=== PATIENT | female | born 1985 | race Caucasian/White ===

== ENCOUNTER 2016-08-15 10:35 | Emergency (ER) | payer OTHER ==
[2016-08-15] MEDS ORDERED: Famotidine IV* 10 MG/ML 2 ML (20 mg) IV ONE (12:21)
[2016-08-15] MEDS ORDERED: NS 0.9% 1000 ML* 2,000 ML IV ONE (12:21)
[2016-08-15] MEDS ORDERED: Ondansetron INJ* 2 MG/ML VIAL IV ONE ×2 (12:21→13:09)
[2016-08-15 12:41] LABS: Hematocrit 41 % (35-47); Hemoglobin 13.7 g/dl (12.0-16.0); Mean Corpuscular HGB Conc 34 g/dl (31-36); Mean Corpuscular Hemoglobin 30 pg (27-31); Mean Corpuscular Volume 90 fL (80-97); Mean Platelet Volume 7 um3 (7.4-10.4); Red Blood Count 4.53 10^6/ul (4.0-5.4); Red Cell Distribution Width 13 % (10.5-15); White Blood Count 7.4 10^3/ul (3.5-10.8)
[2016-08-15 12:53] LABS: ALT 12 U/L (7-52); AST 14 U/L (13-39); Albumin 4.3 g/dL (3.2-5.2); Alkaline Phosphatase 47 U/L (34-104); Amylase 29 U/L (29-103); Anion Gap 8 mmol/L (2-11); BUN/Creatinine Ratio 20.3 (8-20); Blood Urea Nitrogen 14 mg/dL (6-24); CO2 Carbon Dioxide 22 mmol/L (22-32); Chloride 105 mmol/L (101-111); EGFR African American 128.5 (>60); EGFR Non-African American 99.9 (>60); Globulin 2.8 g/dL (2-4); Glucose 115 mg/dL (70-100); Lipase 16 U/L (11.0-82.0); Potassium 3.8 mmol/L (3.5-5.0); Sodium 135 mmol/L (133-145); Total Protein 7.1 g/dL (6.4-8.9)
[2016-08-15] MEDS ORDERED: Ketorolac INJ* 30 MG/ML 1 ML VIAL IV PUSH ONE (13:09)
--- NOTE | 2016-08-15 13:49 | RAD ---
HISTORY: Abdominal pain COMPARISONS: CT dated June 19, 2016 VIEWS: Frontal views of the abdomen. FINDINGS: BOWEL: There is a nonspecific bowel gas pattern, with nondilated small bowel gas noted. CALCULI: There are no abnormal calculi. BONES AND SOFT TISSUES: There is mild scoliotic curvature of the spine OTHER FINDINGS: The lung bases are clear. There is no subphrenic gas. IMPRESSION: NONSPECIFIC BOWEL GAS PATTERN. NO SUBPHRENIC GAS.
--- NOTE | 2016-08-15 13:52 | ED ---
Jose Luis Covarrubias Adam, scribed for Aman Chavez MD on 08/15/16 at 1216 . GI/ HPI - HPI Summary HPI Summary: Pt is a 31 year old female presenting with nausea and vomiting since 01:30 this morning. 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 Pt states that she went to sleep with abdominal pain last night and she had bloody diarrhea 2 days ago. She states that there is a possibility that she is . She reports being diagnosed with Crohn's disease but she denies ever having a colonoscopy. She is not on any medication for Crohn's; she states that she has an appt with a new doctor soon. PMHx of COPD. - History of Current Complaint Chief Complaint: EDAbdPain Time Seen by Provider: 08/15/16 12:10 Stated Complaint: VOMITING Hx Obtained From: Patient Onset/Duration: Started Hours Ago, Atraumatic, Still Present Timing: Constant Severity: Moderate Current Severity: Moderate Pain Intensity: 8 Location of Pain: Diffuse Pain Characteristics: Aching Associated Signs and Symptoms: Positive: Nausea, Vomiting Aggravating Factor(s): Nothing Alleviating Factor(s): Nothing - Allergy/Home Medications Allergies/Adverse Reactions: Allergies Allergy/AdvReac Type Severity Reaction Status Date / Time Penicillins [PCN] Allergy Severe Hives/Diff. Verified 08/15/16 10:54 Breathing/I tching Fluconazole [From Diflucan] Allergy Intermediate Hives Verified 08/15/16 10:54 Latex Allergy Intermediate Swelling Verified 08/15/16 10:54 Terbutaline Allergy Intermediate Hives Verified 08/15/16 10:54 Hydrocodone [From Vicodin] Allergy Unknown Verified 08/15/16 10:54 Reaction Details PMH/Surg Hx/FS Hx/Imm Hx Endocrine/Hematology History: Denies: Hx Anticoagulant Therapy, Hx Diabetes, Hx Systemic Lupus Erythematosus, Hx Thyroid Disease Cardiovascular History: Denies: Hx Congestive Heart Failure, Hx Hypertension, Hx Pacemaker/ICD Respiratory History: Reports: Hx Asthma, Hx Chronic Obstructive Pulmonary Disease (COPD), Other Respiratory Problems/Disorders - COPD Denies: Hx Lung Cancer GI History: Reports: Other GI Disorders - crohns Denies: Hx Gall Bladder Disease, Hx Gastrointestinal Bleed, Hx Ulcer, Hx Urosepsis History: Reports: Hx Kidney Infection, Other Problems/Disorders - hx kidney stones Denies: Hx Dialysis, Hx Kidney Stones, Hx Renal Disease Musculoskeletal History: Denies: Hx Rheumatoid Arthritis Psychiatric History: Reports: Hx Anxiety - She is not on medications for these three psychiatric conditions., Hx Depression, Hx Community Mental Health Tx, Hx Bipolar Disorder, Hx Substance Abuse Denies: Hx Panic Disorder - Cancer History Hx Chemotherapy: No - Surgical History Surgery Procedure, Year, and Place: 3 C-sections;. L knee surgery; Infectious Disease History: No Infectious Disease History: Denies: Hx Clostridium Difficile, Hx Hepatitis, Hx Human Immunodeficiency Virus (HIV), Hx of Known/Suspected MRSA, Hx Shingles, Hx Tuberculosis, Hx Known/ Suspected VRE, Hx Known/Suspected VRSA, History Other Infectious Disease, Traveled Outside the [place] in Last 30 Days - Family History Known Family History: Positive: Respiratory Disease - asthma, COPD, Other - Prostate cancer in father. - Social History Occupation: Unemployed Lives: With Family - Mother Alcohol Use: None Hx Substance Use: Yes Substance Use Type: Reports: Prescribed, Other Substance Use Comment - Amount & Last Used: FORMER USE OF COCAINE IN HER 20'S Hx Tobacco Use: Yes Smoking Status (MU): Former Smoker Type: Cigarettes Review of Systems Constitutional: Negative Negative: Fever Positive: Abdominal Pain, Vomiting, Diarrhea, Other - Blood in stool All Other Systems Reviewed And Are Negative: Yes Physical Exam - Summary Physical Exam Summary: VITAL SIGNS: Reviewed. GENERAL: Patient is an obese female who is lying comfortable in the stretcher. Patient is not in any acute respiratory distress. HEAD AND FACE: Normocephalic and atraumatic. EYES: PERRLA, EOMI x 2, No injected conjunctiva. EARS: Hearing grossly intact. Ear canals and tympanic membranes are WNL. MOUTH: Oropharynx within normal limits. NECK: Supple, trachea is midline, no adenopathy, no JVD. CHEST: Symmetric, no tenderness at palpation LUNGS: Clear to auscultation bilaterally. No wheezing or crackles. CVS: RRR,, S1 and S2 present, no murmurs or gallops appreciated. ABDOMEN: Soft, positive abdominal pain. No signs of distention. Positive bowel sounds. No rebound no guarding, and no masses palpated. No abdominal bruit or pulsations. EXTREMITIES: FROM in all major joints, no edema, no cyanosis or clubbing. NEURO: Alert and oriented x 3. No acute neurological deficits. Speech is normal. SKIN: Dry and warm Triage Information Reviewed: Yes Vital Signs On Initial Exam: Initial Vitals Temp Pulse Resp BP Pulse Ox 97.9 F 92 17 113/75 99 08/15/16 10:40 08/15/16 10:40 08/15/16 10:40 08/15/16 10:40 08/15/16 10:40 Vital Signs Reviewed: Yes Diagnostics - Vital Signs Vital Signs Temp Pulse Resp BP Pulse Ox 08/15/16 11:34 82 15 96 08/15/16 11:33 116/63 08/15/16 10:40 97.9 F 92 17 113/75 99 - Laboratory Lab Results: Lab Results 08/15/16 08/15/16 08/15/16 Range/Units 11:54 11:54 11:54 WBC 7.4 (3.5-10.8) 10^3/ul RBC 4.53 (4.0-5.4) 10^6/ul Hgb 13.7 (12.0-16.0) g/dl Hct 41 (35-47) % MCV 90 (80-97) fL MCH 30 (27-31) pg MCHC 34 (31-36) g/dl RDW 13 (10.5-15) % Plt Count 206 (150-450) 10^3/ul MPV 7 L (7.4-10.4) um3 Neut % (Auto) 83.4 H (38-83) % Lymph % (Auto) 10.2 L (25-47) % Dodge % (Auto) 5.3 (1-9) % Eos % (Auto) 0.8 (0-6) % Baso % (Auto) 0.3 (0-2) % Absolute Neuts (auto) 6.2 (1.5-7.7) 10^3/ul Absolute Lymphs (auto) 0.8 L (1.0-4.8) 10^3/ul Absolute Monos (auto) 0.4 (0-0.8) 10^3/ul Absolute Eos (auto) 0.1 (0-0.6) 10^3/ul Absolute Basos (auto) 0 (0-0.2) 10^3/ul Absolute Nucleated RBC 0.01 10^3/ul Nucleated RBC % 0.1 Sodium 135 (133-145) mmol/L Potassium 3.8 (3.5-5.0) mmol/L Chloride 105 (101-111) mmol/L Carbon Dioxide 22 (22-32) mmol/L Anion Gap 8 (2-11) mmol/L BUN 14 (6-24) mg/dL Creatinine 0.69 (0.51-0.95) mg/dL Est GFR ( Amer) 128.5 (>60) Est GFR (Non-Af Amer) 99.9 (>60) BUN/Creatinine Ratio 20.3 H (8-20) Glucose 115 H (70-100) mg/dL Lactic Acid 1.7 (0.5-2.0) mmol/L Calcium 9.0 (8.6-10.3) mg/dL Total Bilirubin 0.70 (0.2-1.0) mg/dL AST 14 (13-39) U/L ALT 12 (7-52) U/L Alkaline Phosphatase 47 (34-104) U/L C-Reactive Protein 13.60 H (< 5.00) mg/L Total Protein 7.1 (6.4-8.9) g/dL Albumin 4.3 (3.2-5.2) g/dL Globulin 2.8 (2-4) g/dL Albumin/Globulin Ratio 1.5 (1-3) Amylase 29 (29-103) U/L Lipase 16 (11.0-82.0) U/L Beta HCG, Quant < 0.60 mIU/mL Result Diagrams: 08/15/16 11:54 08/15/16 11:54 Lab Statement: Any lab studies that have been ordered have been reviewed, and results considered in the medical decision making process. - Radiology Abdomen X-Ray Radiology Interpretation Completed By: ED Physician - No acute pathology GIGU Course/Dx - Course Assessment/Plan: Pt is a 31 year old female presenting with nausea and vomiting since 01:30 this morning. 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 Pt states that she went to sleep with abdominal pain last night and she had bloody diarrhea 2 days ago. She states that there is a possibility that she is . She reports being diagnosed with Crohn's disease but she denies ever having a colonoscopy. She is not on any medication for Crohn's. ED course she was hydrated with IV fluids. Patient was given Zofran for nausea and vomiting and Pepcid. Blood work is found to be wnl. Last CT abdomen and pelvis done on 06/19/16 show no acute intra abdominal abnormality. She was given Toradol for pain. After medication she is feeling better . I discussed all the findings and test results with the patient and patient. Patient was instructed to return to the emergency room immediately if any of the symptoms return or worsens. They understand and agree. They were explained the possibility of an early abdominal pathology which was not detected at this time despite the physical exam and testing. They understand and agree. Abdominal exam before discharge: Soft,NT. No signs of distention. BS present. No rebound no guarding, and no masses palpated. Patient is alert and oriented. Patient is hemodynamically stable. Patient is to follow up with primary care physician in the next 24 hours. Patient and patients parents agree and understands. - Diagnoses Differential Diagnoses - Female: Bowel Obstruction, Constipation, Colitis, Diverticulitis, Gastroenteritis (Viral), Gastroenteritis (Bacterial) Provider Diagnoses: Abdominal pain, Nausea and vomiting Discharge - Discharge Plan Condition: Stable Disposition: HOME Prescriptions: Ondansetron ODT TAB* [Zofran Odt TAB*] 4 mg PO Q6H PRN #10 tab.odt PRN Reason: Vomiting Patient Education Materials: Acute Nausea and Vomiting (ED), Abdominal Pain (ED ) Referrals: Sita León MD [Medical Doctor] - No Primary Care Phys,NOPCP [Primary Care Provider] - Additional Instructions: Follow up with Dr. León. The documentation as recorded by the Jose Luis byers Adam accurately reflects the service I personally performed and the decisions made by me, Aman Chavez MD.
[2016-08-15 14:32] LABS: Urine Bilirubin Negative (Negative); Urine Glucose Negative (Negative); Urine Nitrite Negative (Negative)
[2016-08-15 14:59] VITALS: BP 122/76
== END 2016-08-15 14:57 | disposition home or self-care (01) ==
LOC: ED 10:35
DX: R11.2 Nausea with vomiting, unspecified (principal); Z87.891 Personal history of nicotine dependence; R19.7 Diarrhea, unspecified
CPT/HCPCS: 36415; 74020; 80053; 81003; 82150; 83605; 83690; 84702; 85025; 86140; 99284; J1885; J2405

== ENCOUNTER 2017-01-12 07:12 | Emergency (ER) | payer OTHER ==
[2017-01-12 07:31] VITALS: BP 116/81
== END 2017-01-12 08:11 | disposition left against medical advice (07) ==
LOC: UCEAST 07:12
DX: R11.10 Vomiting, unspecified (principal); R19.7 Diarrhea, unspecified; Z32.02 Encounter for pregnancy test, result negative; Z53.21 Procedure and treatment not carried out due to patient leaving prior to being seen by health care provider
CPT/HCPCS: 81003; 84702

== ENCOUNTER 2017-01-12 18:05 | Emergency (ER) | payer OTHER ==
[2017-01-12] MEDS ORDERED: Ondansetron INJ* 2 MG/ML VIAL IV ONE (18:27)
[2017-01-12] MEDS ORDERED: Ketorolac INJ* 30 MG/ML 1 ML VIAL IV PUSH ONE (18:27)
[2017-01-12] MEDS ORDERED: NS 0.9% 1000 ML* 1,000 ML BOLUS ONE (18:27)
--- NOTE | 2017-01-12 18:35 | UC ---
Back Pain HPI - HPI Summary HPI Summary: R flank pain with vomiting starting 1-2 days ago. needs note for work. Checked in here this morning and also went to the ED, [facility] both places because she wanted to be seen quicker. Reports hx of "lots of kidney problems" and says she was hospitalized for 5 days when her kidneys shut down years ago. - History of Current Complaint Chief Complaint: UCBackPain Stated Complaint: BACK PAIN Time Seen by Provider: 01/12/17 18:17 Hx Obtained From: Patient Hx Last Menstrual Period: 12/23/16 ?: No Onset/Duration: Gradual Onset, Lasting Days Timing: Intermittent - 10-15 minutes of stabbing pain followed by dull ache. Back Pain: Is Discrete @ - R flank, Radiates To - R abdomen Character: Sharp, Dull Aggravating: Nothing Alleviating: Nothing Associated Signs And Symptoms: Positive: Flank Pain Related History: Similar Episode Dx As - kidney infections - Allergies/Home Medications Allergies/Adverse Reactions: Allergies Allergy/AdvReac Type Severity Reaction Status Date / Time Penicillins [PCN] Allergy Severe Hives/Diff. Verified 01/12/17 18:11 Breathing/I tching Fluconazole [From Diflucan] Allergy Intermediate Hives Verified 01/12/17 18:11 Latex Allergy Intermediate Swelling Verified 01/12/17 18:11 Hydrocodone [From Vicodin] Allergy Unknown Verified 01/12/17 18:11 Reaction Details Home Medications: Home Medications [id number] [Excedrin Extra Strength 250-250-65 mg] 2 tab PO 01/12/17 [History] PMH/Surg Hx/FS Hx/Imm Hx Respiratory History: Asthma Other GI/ History: crohn's dz Other History Of: Negative For: HIV, Hepatitis B, Hepatitis C, Anticoagulant Therapy - Surgical History Surgical History: Yes Surgery Procedure, Year, and Place: 3 C-sections;. L knee surgery; - Family History Known Family History: Positive: Respiratory Disease - asthma, COPD, Other - Prostate cancer in father. - Social History Alcohol Use: None Substance Use Type: None Substance Use Comment - Amount & Last Used: HX MARIJUANA USE; STATES CLEAN X30 DAYS Smoking Status (MU): Current Every Day Smoker Type: Cigarettes Amount Used/How Often: 1/2 PPD Length of Time of Smoking/Using Tobacco: 15 YRS When Did the Patient Quit Smoking/Using Tobacco: 3 years ago Household Exposure Type: Cigarettes - Immunization History Most Recent Influenza Vaccination: fall 2011 Most Recent Tetanus Shot: unknown Review of Systems Constitutional: Negative Skin: Negative Eyes: Negative ENT: Negative Respiratory: Negative Cardiovascular: Negative Gastrointestinal: Vomiting Genitourinary: Other - urinary odor Motor: Negative Neurovascular: Negative Musculoskeletal: Other: - R flank pain Neurological: Negative Psychological: Negative All Other Systems Reviewed And Are Negative: Yes Physical Exam Triage Information Reviewed: Yes Appearance: Well-Appearing, No Pain Distress, Obese Vital Signs: Initial Vital Signs Temp 98.5 F 01/12/17 18:07 Pulse 83 01/12/17 18:07 Resp 16 01/12/17 18:07 BP 104/69 01/12/17 18:07 Pulse Ox 99 01/12/17 18:07 Vital Signs Reviewed: Yes Eye Exam: Normal Eyes: Positive: Conjunctiva Clear ENT Exam: Normal ENT: Positive: Normal ENT inspection, Hearing grossly normal, Pharynx normal, TMs normal Dental Exam: Normal Neck exam: Normal Neck: Positive: Supple, Nontender, No Lymphadenopathy Respiratory Exam: Normal Respiratory: Positive: Chest non-tender, Lungs clear, Normal breath sounds, No respiratory distress Cardiovascular Exam: Normal Cardiovascular: Positive: RRR, No Murmur Abdomen Description: Positive: Soft, CVA Tenderness (R). Negative: No Organomegaly, CVA Tenderness (L), Distended, Guarding Musculoskeletal Exam: Normal Neurological Exam: Normal Neurological: Positive: Alert Psychological Exam: Normal Skin Exam: Normal Back Pain Course/Dx - Differential Dx/Diagnosis Provider Diagnoses: R flank pain Discharge - Discharge Plan Condition: Stable Disposition: HOME
[2017-01-12] MEDS ORDERED: Ondansetron ODT TAB* 4 MG PO ONE (18:49)
[2017-01-12] MEDS ORDERED: Naproxen TAB* 250 MG PO ONE (18:49)
[2017-01-12 19:12] VITALS: BP 104/69
== END 2017-01-12 19:27 | disposition home or self-care (01) ==
LOC: UCEAST 18:05
DX: R10.31 Right lower quadrant pain (principal); J45.909 Unspecified asthma, uncomplicated; K50.90 Crohn's disease, unspecified, without complications; F12.90 Cannabis use, unspecified, uncomplicated; F17.210 Nicotine dependence, cigarettes, uncomplicated; E66.9 Obesity, unspecified; Z88.3 Allergy status to other anti-infective agents; Z88.0 Allergy status to penicillin; Z88.5 Allergy status to narcotic agent; Z91.040 Latex allergy status; Z79.82 Long term (current) use of aspirin
CPT/HCPCS: 81003; 84702; 99212; A9270-GY; G0463

== ENCOUNTER 2017-02-17 07:36 | Emergency (ER) | payer OTHER ==
[2017-02-17] MEDS ORDERED: NS 0.9% 1000 ML* 1,000 ML IV ONE (08:09)
[2017-02-17] MEDS ORDERED: methylPREDNISolone 125 MG* 2 ML VIAL IV ONE (08:09)
[2017-02-17] MEDS ORDERED: Albuterol/Ipratropium NEB.SOL* Albuterol 2.5 MG/Ipratropium 0.5 MG 3 ML INH ONE (08:09)
[2017-02-17 09:24] LABS: Hematocrit 42 % (35-47); Hemoglobin 13.8 g/dl (12.0-16.0); Mean Corpuscular HGB Conc 33 g/dl (31-36); Mean Corpuscular Hemoglobin 32 pg (27-31); Mean Corpuscular Volume 95 fL (80-97); Mean Platelet Volume 8 um3 (7.4-10.4); Red Blood Count 4.38 10^6/ul (4.0-5.4); Red Cell Distribution Width 13 % (10.5-15); White Blood Count 6.8 10^3/ul (3.5-10.8)
[2017-02-17 09:39] LABS: ALT 8 U/L (7-52); AST 11 U/L (13-39); Albumin 4.7 g/dL (3.2-5.2); Alkaline Phosphatase 48 U/L (34-104); Anion Gap 6 mmol/L (2-11); BUN/Creatinine Ratio 10.6 (8-20); Blood Urea Nitrogen 9 mg/dL (6-24); C Reactive Protein 3.89 mg/L (< 5.00); CO2 Carbon Dioxide 25 mmol/L (22-32); Calcium 9.5 mg/dL (8.6-10.3); Chloride 106 mmol/L (101-111); EGFR Non-African American 78.5 (>60); Globulin 2.6 g/dL (2-4); Glucose 102 mg/dL (70-100); Potassium 4.1 mmol/L (3.5-5.0); Sodium 137 mmol/L (133-145); Total Protein 7.3 g/dL (6.4-8.9)
[2017-02-17 10:46] LABS: Urine Bilirubin Negative (Negative); Urine Glucose Negative (Negative); Urine Nitrite Negative (Negative)
--- NOTE | 2017-02-17 11:54 | RAD ---
Indication: Shortness of breath. 2 views of the chest are reviewed and compared to previous exam dated October 01, 2015. No mediastinal shift is noted. Heart is of normal size and configuration. Lung burgess demonstrate no pleural fluid, pneumonia or pneumothorax. Overall no significant change is noted since October 01, 2015. IMPRESSION: No active cardiopulmonary disease is noted.
[2017-02-17 12:29] VITALS: BP 99/62
--- NOTE | 2017-02-17 13:41 | ED ---
Criselda Covarrubias Thomas, scribed for Aman Chavez MD on 02/17/17 at 0804 . HPI Chest Pain - HPI Summary HPI Summary: The pt is a 31 y/o F presenting to the ED c/o CP that began at 06:00 this AM. She describes that her pain as a tightness and rates her pain 8/10. The pain is worsened with deep breaths. The pt says that it feels like her lungs are filling with fluid when she breathes. Pt additionally c/o SOB, and cough ( onset 3 or 4 weeks ago with green production). Pt denies fever and chills. She takes albuterol QID, and a BID COPD medication. PMHx: COPD and asthma. LNMP last month. - History of Current Complaint Chief Complaint: EDShortnessOfBreath Time Seen by Provider: 02/17/17 07:54 Hx Obtained From: Patient Onset/Duration: Started Days Ago - this AM at 06:00, Still Present Timing: Constant Current Severity: Severe Pain Intensity: 8 Pain Scale Used: 0-10 Numeric Character: Tightness Aggravating Factor(s): Deep Breaths Associated Signs and Symptoms: Positive: Chest Pain, Shortness of Breath, Productive Cough - with green production. Negative: Fever, Chills - Allergy/Home Medications Allergies/Adverse Reactions: Allergies Allergy/AdvReac Type Severity Reaction Status Date / Time Penicillins [PCN] Allergy Severe Hives/Diff. Verified 01/12/17 18:11 Breathing/I tching Fluconazole [From Diflucan] Allergy Intermediate Hives Verified 01/12/17 18:11 Latex Allergy Intermediate Swelling Verified 01/12/17 18:11 Hydrocodone [From Vicodin] Allergy Unknown Verified 01/12/17 18:11 Reaction Details PMH/Surg Hx/FS Hx/Imm Hx Previously Healthy: No Endocrine/Hematology History: Denies: Hx Anticoagulant Therapy, Hx Diabetes, Hx Systemic Lupus Erythematosus, Hx Thyroid Disease Cardiovascular History: Denies: Hx Congestive Heart Failure, Hx Hypertension, Hx Pacemaker/ICD Respiratory History: Reports: Hx Asthma, Hx Chronic Obstructive Pulmonary Disease (COPD) Denies: Hx Lung Cancer GI History: Reports: Other GI Disorders - crohns Denies: Hx Gall Bladder Disease, Hx Gastrointestinal Bleed, Hx Ulcer, Hx Urosepsis History: Reports: Hx Kidney Infection, Other Problems/Disorders - hx kidney stones Denies: Hx Dialysis, Hx Kidney Stones, Hx Renal Disease Musculoskeletal History: Denies: Hx Rheumatoid Arthritis Psychiatric History: Reports: Hx Anxiety - She is not on medications for these three psychiatric conditions., Hx Depression, Hx Community Mental Health Tx, Hx Bipolar Disorder, Hx Substance Abuse Denies: Hx Panic Disorder - Cancer History Hx Chemotherapy: No - Surgical History Surgery Procedure, Year, and Place: 3 C-sections;. L knee surgery; Infectious Disease History: No Infectious Disease History: Denies: Hx Clostridium Difficile, Hx Hepatitis, Hx Human Immunodeficiency Virus (HIV), Hx of Known/Suspected MRSA, Hx Shingles, Hx Tuberculosis, Hx Known/ Suspected VRE, Hx Known/Suspected VRSA, History Other Infectious Disease, Traveled Outside the [place] in Last 30 Days - Family History Known Family History: Positive: Respiratory Disease - asthma, COPD, Other - Prostate cancer in father. - Social History Alcohol Use: None Hx Substance Use: Yes Substance Use Type: Reports: Marijuana Substance Use Comment - Amount & Last Used: daily Hx Tobacco Use: Yes Smoking Status (MU): Heavy Every Day Tobacco Smoker Type: Cigarettes Amount Used/How Often: 1/2 PPD Length of Time of Smoking/Using Tobacco: 15 YRS Review of Systems Constitutional: Negative Negative: Fever, Chills Eyes: Negative ENT: Negative Cardiovascular: Negative Positive: Chest Pain - tighness, worsened with deep breaths, 8/10, onset this AM at 06:00 Positive: Shortness Of Breath, Cough - with green production, Other - POS: "it feels like my lungs are filling with fluid when I breathe" Gastrointestinal: Negative Genitourinary: Negative Musculoskeletal: Negative Skin: Negative Neurological: Negative Psychological: Normal All Other Systems Reviewed And Are Negative: Yes Physical Exam - Summary Physical Exam Summary: VITAL SIGNS: Reviewed. GENERAL: ~Patient is a well-developed and nourished female who is lying comfortable in the stretcher. ~Patient is not in any acute respiratory distress. HEAD AND FACE: No signs of trauma. ~No ecchymosis, hematomas or skull depressions. No sinus tenderness. EYES: PERRLA, EOMI x 2, No injected conjunctiva, no nystagmus. EARS: Hearing grossly intact. Ear canals and tympanic membranes are within normal limits. MOUTH: Oropharynx within normal limits. NECK: Supple, trachea is midline, no adenopathy, no JVD, no carotid bruit, no c- spine tenderness, neck with full ROM. CHEST: Symmetric, no tenderness at palpation LUNGS: Slight wheezing in the apices of lungs. No crackles. Otherwise normal. CVS: Regular rate and rhythm, S1 and S2 present, no murmurs or gallops appreciated. ABDOMEN: Soft, non-tender. No signs of distention. No rebound no guarding, and no masses palpated. Bowel sounds are normal. EXTREMITIES: FROM in all major joints, no edema, no cyanosis or clubbing. NEURO: Alert and oriented x 3. No acute neurological deficits. Speech is normal and follows commands. SKIN: Dry and warm Triage Information Reviewed: Yes Vital Signs On Initial Exam: Initial Vitals Temp Pulse Resp BP Pulse Ox 97.4 F 72 18 121/74 97 02/17/17 07:39 02/17/17 07:39 02/17/17 07:39 02/17/17 07:39 02/17/17 07:39 Vital Signs Reviewed: Yes - [place] Coma Scale Coma Scale Total: 15 Diagnostics - Vital Signs Vital Signs Temp Pulse Resp BP Pulse Ox 02/17/17 07:39 97.4 F 72 18 121/74 97 - Laboratory Lab Results: Lab Results 02/17/17 02/17/17 02/17/17 Range/Units 09:10 09:10 09:10 WBC 6.8 (3.5-10.8) 10^3/ul RBC 4.38 (4.0-5.4) 10^6/ul Hgb 13.8 (12.0-16.0) g/dl Hct 42 (35-47) % MCV 95 (80-97) fL MCH 32 H (27-31) pg MCHC 33 (31-36) g/dl RDW 13 (10.5-15) % Plt Count 197 (150-450) 10^3/ul MPV 8 (7.4-10.4) um3 Neut % (Auto) 68.6 (38-83) % Lymph % (Auto) 22.9 L (25-47) % [place] % (Auto) 6.7 (1-9) % Eos % (Auto) 1.0 (0-6) % Baso % (Auto) 0.8 (0-2) % Absolute Neuts (auto) 4.7 (1.5-7.7) 10^3/ul Absolute Lymphs (auto) 1.6 (1.0-4.8) 10^3/ul Absolute Monos (auto) 0.5 (0-0.8) 10^3/ul Absolute Eos (auto) 0.1 (0-0.6) 10^3/ul Absolute Basos (auto) 0.1 (0-0.2) 10^3/ul Absolute Nucleated RBC 0.01 10^3/ul Nucleated RBC % 0.1 Sodium 137 (133-145) mmol/L Potassium 4.1 (3.5-5.0) mmol/L Chloride 106 (101-111) mmol/L Carbon Dioxide 25 (22-32) mmol/L Anion Gap 6 (2-11) mmol/L BUN 9 (6-24) mg/dL Creatinine 0.85 (0.51-0.95) mg/dL Est GFR ( Amer) 101.0 (>60) Est GFR (Non-Af Amer) 78.5 (>60) BUN/Creatinine Ratio 10.6 (8-20) Glucose 102 H (70-100) mg/dL Lactic Acid 0.9 (0.5-2.0) mmol/L Calcium 9.5 (8.6-10.3) mg/dL Total Bilirubin 0.50 (0.2-1.0) mg/dL AST 11 L (13-39) U/L ALT 8 (7-52) U/L Alkaline Phosphatase 48 (34-104) U/L Troponin I 0.00 (<0.04) ng/mL C-Reactive Protein 3.89 (< 5.00) mg/L B-Natriuretic Peptide ( - 100) pg/mL Total Protein 7.3 (6.4-8.9) g/dL Albumin 4.7 (3.2-5.2) g/dL Globulin 2.6 (2-4) g/dL Albumin/Globulin Ratio 1.8 (1-3) Beta HCG, Quant < 0.60 mIU/mL Urine Color Urine Appearance Urine pH (5-9) Ur Specific [place] (1.010-1.030) Urine Protein (Negative) Urine Ketones (Negative) Urine Blood (Negative) Urine Nitrate (Negative) Urine Bilirubin (Negative) Urine Urobilinogen (Negative) Ur Leukocyte Esterase (Negative) Urine Glucose (Negative) 02/17/17 02/17/17 Range/Units 09:10 09:52 WBC (3.5-10.8) 10^3/ul RBC (4.0-5.4) 10^6/ul Hgb (12.0-16.0) g/dl Hct (35-47) % MCV (80-97) fL MCH (27-31) pg MCHC (31-36) g/dl RDW (10.5-15) % Plt Count (150-450) 10^3/ul MPV (7.4-10.4) um3 Neut % (Auto) (38-83) % Lymph % (Auto) (25-47) % [place] % (Auto) (1-9) % Eos % (Auto) (0-6) % Baso % (Auto) (0-2) % Absolute Neuts (auto) (1.5-7.7) 10^3/ul Absolute Lymphs (auto) (1.0-4.8) 10^3/ul Absolute Monos (auto) (0-0.8) 10^3/ul Absolute Eos (auto) (0-0.6) 10^3/ul Absolute Basos (auto) (0-0.2) 10^3/ul Absolute Nucleated RBC 10^3/ul Nucleated RBC % Sodium (133-145) mmol/L Potassium (3.5-5.0) mmol/L Chloride (101-111) mmol/L Carbon Dioxide (22-32) mmol/L Anion Gap (2-11) mmol/L BUN (6-24) mg/dL Creatinine (0.51-0.95) mg/dL Est GFR ( Amer) (>60) Est GFR (Non-Af Amer) (>60) BUN/Creatinine Ratio (8-20) Glucose (70-100) mg/dL Lactic Acid (0.5-2.0) mmol/L Calcium (8.6-10.3) mg/dL Total Bilirubin (0.2-1.0) mg/dL AST (13-39) U/L ALT (7-52) U/L Alkaline Phosphatase (34-104) U/L Troponin I (<0.04) ng/mL C-Reactive Protein (< 5.00) mg/L B-Natriuretic Peptide 41 ( - 100) pg/mL Total Protein (6.4-8.9) g/dL Albumin (3.2-5.2) g/dL Globulin (2-4) g/dL Albumin/Globulin Ratio (1-3) Beta HCG, Quant mIU/mL Urine Color Straw Urine Appearance Clear Urine pH 8.0 (5-9) Ur Specific [place] 1.003 L (1.010-1.030) Urine Protein Negative (Negative) Urine Ketones Negative (Negative) Urine Blood Negative (Negative) Urine Nitrate Negative (Negative) Urine Bilirubin Negative (Negative) Urine Urobilinogen Negative (Negative) Ur Leukocyte Esterase Negative (Negative) Urine Glucose Negative (Negative) Result Diagrams: 02/17/17 09:10 02/17/17 09:10 Lab Statement: Any lab studies that have been ordered have been reviewed, and results considered in the medical decision making process. - Radiology CXR Xray Interpretation: No Acute Changes - no active cardipulmonary disease is noted Radiology Interpretation Completed By: Radiologist - EKG 09:28 Cardiac Rate: NL - 68 BPM EKG Interpretation: Sinus rhythm. Unchanged from previous EKG on 05/21/14. Chest Pain Course/Dx - Course Assessment/Plan: The pt is a 31 y/o F presenting to the ED c/o CP that began at 06:00 this AM. She describes that her pain as a tightness and rates her pain 8/ 10. The pain is worsened with deep breaths. The pt says that it feels like her lungs are filling with fluid when she breathes. Pt additionally c/o SOB, and cough (onset 3 or 4 weeks ago with green production). Pt denies fever and chills. She takes albuterol QID, and a BID COPD medication. PMHx: COPD and asthma. LNMP last month. In the ED course an IV access was obtained. Patient was placed in a cardiac catheterization technologist. Patient was started with IV fluids. Physical exam has slight wheezing for which she was given Duonebs and SoluMedrol. Labs with no significant abnormality. Troponin #1: 0.00 and Troponin # 2 (4 hours later): EKG shows a NSR at 62 BPM w/o ST elevations. CXR impression: No acute pathology. After hydration and medications she reports improvement. I discussed all the findings and test results with the patient. Patient was instructed to return to the emergency room immediately if any of the symptoms return or worsens . Plan of care was discussed with the patient and understands and agrees. All questions were answered at patient satisfaction. There were no further complaints or concerns. Lung exam before discharge: CTA B/L. Good air exchange. No wheezing or crackles heard. CVS: S1 and S2 present. No murmurs appreciated. Patient is alert and oriented x 3. Patient is hemodynamically stable. Patient will be discharged home with follow up field laboratory operator in the next 2-3 days - Chest Pain Differential Diagnosis/HQI/PQRI: CHF, Other: - COPD, PNA, Bronchitis - Diagnoses Provider Diagnoses: COPD exacerbation Discharge - Discharge Plan Condition: Stable Disposition: HOME Prescriptions: Azithromycin TAB* [Zithromax TAB (Z-JUAN) 250 mg #6 tabs] 2 tab PO .TODAY, THEN 1 DAILY #1 juan predniSONE TAB* [Deltasone TAB*] 40 mg PO DAILY #8 tab Patient Education Materials: COPD (Chronic Obstructive Pulmonary Disease) (ED) Referrals: [facility] [place] PHYSICIAN REFERRAL [Outside] The documentation as recorded by the Criselda byers Thomas accurately reflects the service I personally performed and the decisions made by me, Aman Chavez MD.
== END 2017-02-17 12:29 | disposition home or self-care (01) ==
LOC: ED 07:36
DX: R07.9 Chest pain, unspecified (principal); R06.02 Shortness of breath; R05 Cough; J44.1 Chronic obstructive pulmonary disease with (acute) exacerbation
CPT/HCPCS: 36415; 71020; 80053; 81003; 83605; 83880; 84484; 84702; 85025; 86140; 87040; 93005; 94640; 96374; 99283; A9270-GY; J2930

== ENCOUNTER 2017-05-29 08:54 | Emergency (ER) | payer OTHER ==
[2017-05-29 09:26] VITALS: BP 94/62
--- NOTE | 2017-05-29 10:51 | UC ---
Skin Complaint HPI - HPI Summary HPI Summary: NOTICED TICK ATTACHED TO LEFT UPPER ARM TODAY. THINKS IT ATTACHED YESTERDAY. ARM IS SORE BUT PT OTHERWISE FEELS WELL. - History of Current Complaint Chief Complaint: UCSkin Time Seen by Provider: 05/29/17 09:55 Stated Complaint: TICK BITE Hx Obtained From: Patient, Family/Hide Or Skin Buffer - Hx Last Menstrual Period: 12/23/16 Timing: Constant Onset Severity: Moderate Current Severity: Moderate Pain Intensity: 7 Pain Scale Used: 0-10 Numeric Location: Discrete - LEFT UPPER ARM Character: Painful Aggravating Factor(s): Touch Alleviating Factor(s): Nothing Associated Signs & Symptoms: Positive: Negative Related History: Insect Bite/Sting - Allergy/Home Medications Allergies/Adverse Reactions: Allergies Allergy/AdvReac Type Severity Reaction Status Date / Time Penicillins [PCN] Allergy Severe Hives/Diff. Verified 05/29/17 09:21 Breathing/I tching Fluconazole [From Diflucan] Allergy Intermediate Hives Verified 05/29/17 09:21 Latex Allergy Intermediate Swelling Verified 05/29/17 09:21 Hydrocodone [From Vicodin] Allergy Unknown Verified 05/29/17 09:21 Reaction Details Home Medications: Home Medications Sertraline* [Zoloft*] 05/29/17 [History] Review of Systems Constitutional: Negative Skin: Other - TICK EMBEDDED LEFT UPPER ARM Respiratory: Negative Cardiovascular: Negative Gastrointestinal: Negative All Other Systems Reviewed And Are Negative: Yes PMH/Surg Hx/FS Hx/Imm Hx Respiratory History: COPD, Asthma Other History Of: Negative For: HIV, Hepatitis B, Hepatitis C, Anticoagulant Therapy - Surgical History Surgical History: Yes Surgery Procedure, Year, and Place: 3 C-sections;. L knee surgery; - Family History Known Family History: Positive: Hypertension, Respiratory Disease - asthma, COPD , Other - Prostate cancer in father. - Social History Alcohol Use: None Substance Use Type: None Substance Use Comment - Amount & Last Used: daily Smoking Status (MU): Heavy Every Day Tobacco Smoker Type: Cigarettes Amount Used/How Often: 1/2 PPD Length of Time of Smoking/Using Tobacco: 15 YRS When Did the Patient Quit Smoking/Using Tobacco: 3 years ago Household Exposure Type: Cigarettes - Immunization History Most Recent Influenza Vaccination: fall 2011 Most Recent Tetanus Shot: unknown Physical Exam Triage Information Reviewed: Yes Appearance: Well-Appearing, No Pain Distress, Well-Nourished Vital Signs: Initial Vital Signs Temp 98 F 05/29/17 09:23 Pulse 75 05/29/17 09:23 Resp 16 05/29/17 09:23 BP 94/62 05/29/17 09:23 Pulse Ox 100 05/29/17 09:23 Vital Signs Reviewed: Yes Eyes: Positive: Conjunctiva Inflamed ENT: Positive: Hearing grossly normal Neck: Positive: Supple Respiratory: Positive: No respiratory distress, No accessory muscle use Cardiovascular: Positive: Pulses Normal Abdomen Description: Positive: Soft Musculoskeletal: Positive: No Edema Neurological: Positive: Alert Psychological: Positive: Age Appropriate Behavior Skin: Positive: Other - TICK EMBEDDED LEFT UPPER ARM Course/Dx - Course Course Of Treatment: TICK REMOVED IN ENTIRETY USING TICK TWISTER - Diagnoses Provider Diagnoses: TICK BITE Discharge - Discharge Plan Condition: Stable Disposition: HOME Patient Education Materials: Tick Bite (ED) Additional Instructions: TICK BITE PROPHYLAXIS The Infectious Disease Society of [place] (IDSA) does not generally recommend antimicrobial prophylaxis for prevention of Lyme disease after a recognized tick bite. However, in areas that are highly endemic for Lyme disease, a single dose of doxycycline may be offered to adult patients (200 mg) who are not and to children older than 8 years of age (4 mg/kg up to a maximum dose of 200 mg) when all of the following circumstances exist: CRITERIA FOR RECEIVING PROPHYLACTIC TREATMENT FOR LYME DISEASE 1) TICK ATTACHED FOR AT LEAST 36 HRS 2) TICK IS AN ADULT OR [place] DEER TICK 3) YOU LIVE IN AN AREA WHERE LYME DISEASE IS PREVALENT (i.e., [place], [place], [place], [place], [place] , [place], [place], [place], [place], [place], [place], [place], [place], [place]) 4) YOU HAVE NO CONTRAINDICATION TO THE MEDICATION (DOXYCYCLINE) 5) PROPHYLAXIS IS BEGUN WITHIN 72 HRS OF TICK REMOVAL SINCE YOU DO NOT MEET ALL THESE CRITERIA THERE IS NO NEED TO GIVE YOU PROPHYLACTIC ANTIBIOTICS. YOUR CHANCES OF DEVELOPING LYME DISEASE ARE EXTREMELY SMALL. BE VIGILANT OF YOUR SYMPTOMS AND DON'T HESITATE TO GET SEEN AGAIN IF YOU DEVELOP UNEXPLAINED FEVER, HEADACHE, JOINT PAIN, BODY ACHES, RASH OR ANY OTHER CONCERNING SYMPTOMS. Antibiotic treatment following a tick bite is not recommended as a means to prevent anaplasmosis, babesiosis, ehrlichiosis, or Innovation spotted fever. There is no evidence this practice is effective, and it may simply delay onset of disease. Instead, persons who experience a tick bite should be alert for symptoms suggestive of tickborne illness and consult a physician if fever, rash, or other symptoms of concern develop. CALL THE NUMBER BELOW FOR ASSISTANCE IN ESTABLISHING WITH A PCP An additional resource available to assist in finding the appropriate physician for your health care needs is the [facility] ([facility]). You may contact them by calling [phone].
== END 2017-05-29 10:18 | disposition home or self-care (01) ==
LOC: UCEAST 08:54
DX: S40.862A Insect bite (nonvenomous) of left upper arm, initial encounter (principal); W57.XXXA Bitten or stung by nonvenomous insect and other nonvenomous arthropods, initial encounter; Y92.9 Unspecified place or not applicable; Z88.0 Allergy status to penicillin; F17.210 Nicotine dependence, cigarettes, uncomplicated
CPT/HCPCS: 99211; G0463

== ENCOUNTER 2017-06-21 09:30 | Emergency (ER) | payer OTHER ==
[2017-06-21 09:53] VITALS: BP 97/55
--- NOTE | 2017-06-21 10:03 | UC ---
Lower Extremity/Ankle HPI - HPI Summary HPI Summary: Patient presents with nontraumatic right fort pain x 2 days. She states it began while walking with a sudden sharp pain on the side of her foot, that now radiates down the side of her foot, and up the leg to the knee. She states the pain is worse when she first gets up. then it seems to improve and then it gets worse as the day goes on and she is on it. She denies any redness, warmth, swelling. - History of Current Complaint Chief Complaint: UCLowerExtremity Stated Complaint: FOOT INJURY Time Seen by Provider: 06/21/17 09:50 Hx Obtained From: Patient Hx Last Menstrual Period: 06/02/17 ?: No Onset/Duration: Sudden Onset, Lasting Days Severity Initially: Severe Severity Currently: Moderate Pain Scale Used: 0-10 Numeric Aggravating Factor(s): Standing, Ambulation Alleviating Factor(s): Rest, Elevation Able to Bear Weight: Yes - Risk Factors Gout Risk Factors: Negative DVT Risk Factors: Negative Septic Arthritis Risk Factor: Negative - Allergies/Home Medications Allergies/Adverse Reactions: Allergies Allergy/AdvReac Type Severity Reaction Status Date / Time Penicillins [PCN] Allergy Severe Hives/Diff. Verified 06/21/17 09:41 Breathing/I tching Fluconazole [From Diflucan] Allergy Intermediate Hives Verified 06/21/17 09:41 Latex Allergy Intermediate Swelling Verified 06/21/17 09:41 Hydrocodone [From Vicodin] Allergy Unknown Verified 06/21/17 09:41 Reaction Details Sulfamethoxazole Allergy See Comment Verified 06/21/17 09:41 w/Trimethoprim [From Bactrim] Home Medications: Home Medications Gabapentin CAP(*) [Neurontin 300 CAP(*)] 300 mg PO QID 06/21/17 [History Confirmed 06/21/17] Gabapentin [Neurontin 800 mg tab] 800 mg PO DAILY PRN 06/21/17 [History Confirmed 06/21/17] Prazosin CAP* [Minipress CAP*] 2 mg PO BEDTIME 06/21/17 [History Confirmed 06/21] cloNIDine TAB* [Catapres 0.1 MG TAB*] 0.1 mg PO Q6HR PRN 06/21/17 [History Confirmed 06/21/17] hydrOXYzine HCL TAB* [Atarax TAB 50 MG *] 50 mg PO BEDTIME 06/21/17 [History Confirmed 06/21/17] traZODone TAB* [Desyrel TAB*] 50 mg PO BEDTIME 06/21/17 [History Confirmed 06/21] PMH/Surg Hx/FS Hx/Imm Hx Previously Healthy: Yes Other History Of: Negative For: HIV, Hepatitis B, Hepatitis C, Anticoagulant Therapy - Surgical History Surgical History: Yes Surgery Procedure, Year, and Place: 3 C-sections;. L knee surgery; - Family History Known Family History: Positive: Hypertension, Respiratory Disease - asthma, COPD , Other - Prostate cancer in father. - Social History Lives: Alone Alcohol Use: None Substance Use Type: None Substance Use Comment - Amount & Last Used: daily Smoking Status (MU): Heavy Every Day Tobacco Smoker Type: Cigarettes Amount Used/How Often: 1 PPD Length of Time of Smoking/Using Tobacco: 15 YRS When Did the Patient Quit Smoking/Using Tobacco: 3 years ago Household Exposure Type: Cigarettes - Immunization History Most Recent Influenza Vaccination: Not UTD Most Recent Tetanus Shot: unknown Review of Systems Constitutional: Negative Skin: Negative Eyes: Negative ENT: Negative Respiratory: Negative Cardiovascular: Negative Gastrointestinal: Negative Genitourinary: Negative Motor: Negative Neurovascular: Negative Musculoskeletal: Decreased ROM, Myalgia Neurological: Negative Psychological: Negative All Other Systems Reviewed And Are Negative: Yes Physical Exam Triage Information Reviewed: Yes Appearance: Well-Appearing Vital Signs: Initial Vital Signs Temp 97.5 F 06/21/17 09:35 Pulse 67 06/21/17 09:35 Resp 16 06/21/17 09:35 BP 97/55 06/21/17 09:35 Pulse Ox 99 06/21/17 09:35 Vital Signs Reviewed: Yes Eye Exam: Normal ENT Exam: Normal Neck exam: Normal Neck: Positive: 1 Respiratory Exam: Normal Cardiovascular Exam: Normal Abdominal Exam: Normal Musculoskeletal: Positive: Other: - Right foot, inspection, no areas on eccymosis, edema or erythema. Palpation, tenderness on palapation over the achilles tendon, and lateral malleous. ROM, intact in all planes. Vasc; no edema or swelling, PP+. Neuro, no deficits to touch distally. Neurological Exam: Normal Psychological Exam: Normal Skin Exam: Normal Lower Extremity Course/Dx - Course Course Of Treatment: Patient presents with nontraumatic right lateral foot pain. No evidnece of swelling or warmth, the joint is not swollen or warm,I do no suspect a septic joint, VSS, afebile. Xrays were obtained and were read a negative. The patient was placed in a post-op shoe. NSAID for pain, she sees Dr. Luong, F/U word processing supervisor within two days. Rest and elelvate. - Differential Dx/Diagnosis Differential Diagnosis/HQI/PQRI: Tendonitis Provider Diagnoses: tendonitis Discharge - Discharge Plan Condition: Stable Disposition: HOME Patient Education Materials: Tendinitis (ED) Forms: *Work Release Referrals: No Primary Care Phys,NOPCP [Primary Care Provider] -
--- NOTE | 2017-06-21 10:19 | RAD ---
Indication: Lateral foot pain. 3 views of the right foot demonstrates no fracture. No other bone or joint abnormality is identified. IMPRESSION: No fracture of the right foot is noted.
== END 2017-06-21 10:20 | disposition home or self-care (01) ==
LOC: UCEAST 09:30
DX: M77.51 Other enthesopathy of right foot and ankle (principal); F17.210 Nicotine dependence, cigarettes, uncomplicated
CPT/HCPCS: 99212; G0463

== ENCOUNTER 2017-07-10 22:34 | Emergency (ER) | payer OTHER ==
[2017-07-10 23:05] VITALS: BP 111/83
== END 2017-07-11 00:14 | disposition left against medical advice (07) ==
LOC: ED 22:34
DX: M79.645 Pain in left finger(s) (principal); Z53.21 Procedure and treatment not carried out due to patient leaving prior to being seen by health care provider

== ENCOUNTER 2017-09-27 13:40 | Emergency (ER) | payer OTHER ==
[2017-09-27 14:13] VITALS: BP 102/74
--- NOTE | 2017-09-27 15:02 | UC ---
Abdominal Pain Female HPI - HPI Summary HPI Summary: Pt presents with generalized sharp pain intermittently throughout her abdomen since last night with two episodes of vomiting. She went to work today, but left due to discomfort. She vomited once early this morning, but nothing since. Did have a small meal earlier today. Says she has a history of crohn's but this feels different. Denies fever, chills, SOB, chest pain, diarrhea, blood in her stool, or dysuria. - History of Current Complaint Chief Complaint: UCAbdominalPain Stated Complaint: VOMITING HEADACHE ABD PAIN Time Seen by Provider: 09/27/17 15:01 Hx Obtained From: Patient Hx Last Menstrual Period: 09/13/2017 Onset/Duration: Sudden Onset Severity Initially: Moderate Severity Currently: Moderate Pain Intensity: 7 Pain Scale Used: 0-10 Numeric Location: Diffuse Allergies/Adverse Reactions: Allergies Allergy/AdvReac Type Severity Reaction Status Date / Time fluconazole [From Diflucan] Allergy Hives Verified 09/27/17 14:06 hydrocodone Allergy Unknown Verified 09/27/17 14:06 Reaction Details latex Allergy Swelling Verified 09/27/17 14:06 Penicillins Allergy Hives/Diff. Verified 09/27/17 14:06 Breathing/I tching sulfamethoxazole Allergy See Comment Verified 09/27/17 14:06 [From Bactrim] trimethoprim [From Bactrim] Allergy See Comment Verified 09/27/17 14:06 PMH/Surg Hx/FS Hx/Imm Hx GI/ History: Other Other GI/ History: Crohn's Psychological History: Anxiety, Depression Other History Of: Negative For: HIV, Hepatitis B, Hepatitis C, Anticoagulant Therapy - Surgical History Surgical History: Yes Surgery Procedure, Year, and Place: 3 C-sections;. L knee surgery; - Family History Known Family History: Positive: Hypertension, Respiratory Disease - asthma, COPD , Other - Prostate cancer in father. - Social History Occupation: Employed Full-time Lives: With Family Alcohol Use: None Substance Use Type: None Substance Use Comment - Amount & Last Used: daily Smoking Status (MU): Heavy Every Day Tobacco Smoker Type: Cigarettes Amount Used/How Often: 1 PPD Length of Time of Smoking/Using Tobacco: 15 YRS When Did the Patient Quit Smoking/Using Tobacco: 3 years ago Household Exposure Type: Cigarettes - Immunization History Most Recent Influenza Vaccination: fall 2011 Most Recent Tetanus Shot: unknown Review of Systems Constitutional: Negative Skin: Negative Respiratory: Negative Cardiovascular: Negative Gastrointestinal: Abdominal Pain, Vomiting, Nausea Genitourinary: Negative Musculoskeletal: Negative Neurological: Negative Psychological: Negative All Other Systems Reviewed And Are Negative: Yes Physical Exam Triage Information Reviewed: Yes Appearance: Well-Appearing, No Pain Distress, Well-Nourished, Other: - Lying on the exam table with her hands behind her head on her cell phone Vital Signs: Initial Vital Signs Temp 98.4 F 09/27/17 14:08 Pulse 74 09/27/17 14:08 Resp 18 09/27/17 14:08 BP 102/74 09/27/17 14:08 Pulse Ox 100 09/27/17 14:08 Eyes: Positive: Conjunctiva Clear. Negative: Conjunctiva Inflamed, Discharge ENT: Positive: Hearing grossly normal, Pharynx normal, TMs normal, Uvula midline. Negative: Pharyngeal erythema, Nasal congestion, Nasal drainage, TM bulging, TM dull, TM red, Tonsillar swelling, Tonsillar exudate, Hoarse voice, Sinus tenderness Neck: Positive: Supple, Nontender, No Lymphadenopathy Respiratory: Positive: Lungs clear, Normal breath sounds, No respiratory distress, No accessory muscle use Cardiovascular: Positive: RRR, No Murmur, Pulses Normal Abdomen Description: Positive: No Organomegaly, Soft, Other: - Mild generalized tenderness. Negative: CVA Tenderness (R), CVA Tenderness (L), Distended, Guarding, McBurney's Point Tenderness, Peritoneal Signs Bowel Sounds: Positive: Present Neurological: Positive: Alert Psychological: Positive: Age Appropriate Behavior Skin: Negative: rashes Abd Pain Female Course/Dx - Course Course Of Treatment: UA and urine preg negative. Suspect Viral gastroenteritis - will rx for Zofran. She is asking for a note off work. - Differential Dx/Diagnosis Provider Diagnoses: Viral gastroenteritis Discharge - Discharge Plan Condition: Stable Disposition: HOME Prescriptions: Ondansetron ODT TAB* [Zofran 4 MG Odt TAB*] 4 mg PO Q8H PRN #12 tab.odt PRN Reason: Nausea Patient Education Materials: Gastroenteritis (DC) Forms: *Work Release Referrals: Izabel Teran MD [Primary Care Provider] - Additional Instructions: If you develop a fever, shortness of breath, chest pain, new or worsening symptoms - please call your PCP or go to the ED.
== END 2017-09-27 15:19 | disposition home or self-care (01) ==
LOC: UCEAST 13:40
DX: A08.4 Viral intestinal infection, unspecified (principal); Z32.02 Encounter for pregnancy test, result negative; K50.90 Crohn's disease, unspecified, without complications; F41.9 Anxiety disorder, unspecified; F32.9 Major depressive disorder, single episode, unspecified; Z88.5 Allergy status to narcotic agent; Z88.0 Allergy status to penicillin; Z88.2 Allergy status to sulfonamides; Z88.1 Allergy status to other antibiotic agents; Z91.040 Latex allergy status; Z87.891 Personal history of nicotine dependence
CPT/HCPCS: 81003; 84702; 99212; G0463

== ENCOUNTER 2017-11-15 09:46 | Emergency (ER) | payer OTHER ==
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
[2017-11-15] MEDS ORDERED: Ondansetron ODT TAB* 4 MG PO ONE (12:30)
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
[2017-11-15 14:09] VITALS: BP 104/51
== END 2017-11-15 14:08 | disposition home or self-care (01) ==
LOC: ED 09:46 → EEVIPCON 09:46 → ED 14:08
DX: S09.90XA Unspecified injury of head, initial encounter (principal); M54.2 Cervicalgia; S00.83XA Contusion of other part of head, initial encounter; R07.81 Pleurodynia; Y04.2XXA Assault by strike against or bumped into by another person, initial encounter; Y92.9 Unspecified place or not applicable; F17.210 Nicotine dependence, cigarettes, uncomplicated; J44.9 Chronic obstructive pulmonary disease, unspecified
CPT/HCPCS: 36415; 70450; 70486; 72125; 84702; 99282; A9270-GY